=== PATIENT | female | born 1980 | race Caucasian/White ===

== ENCOUNTER 2020-11-03 10:04 | Emergency (ER) | payer OTHER ==
[~2020-11-03] VITALS: Ht 160 cm; Wt 97.5 kg
[2020-11-03] MEDS ORDERED: SPIRONOLACTONE25 MG PO (10:18)
[2020-11-03] MEDS ORDERED: LASIX 40 MG TAB40 MG PO (10:19)
[2020-11-03] MEDS ORDERED: PROTONIX40 M2 PO (10:19)
[2020-11-03] MEDS ORDERED: SUPER THERAVIT1 EACH PO (10:21)
[2020-11-03] MEDS ORDERED: FENOFIBRATE150 MG PO (10:21)
[2020-11-03] MEDS ORDERED: COZAAR 25 MG TA25 M2 PO (10:21)
[2020-11-03] MEDS ORDERED: VITAMIN B-121000 MC2 SUBLING (10:22)
[2020-11-03 10:57] LABS: ABSOLUTE BASOPHILS 0.1 thou/uL (0.0-0.2); ABSOLUTE EOSINOPHILS 0.2 thou/uL (0.0-0.7); ABSOLUTE LYMPHOCYTES 2.6 thou/uL (0.8-5.3); ABSOLUTE MONOCYTES 0.5 thou/uL (0.0-1.2); ABSOLUTE NEUTROPHILS 5.2 thou/uL (1.6-8.1); BASOPHILS 0.9 %; EOSINOPHILS 1.8 %; HEMATOCRIT 37.8 % (37.0-47.0); HEMOGLOBIN 13.4 gm/dL (12.0-15.0); LYMPHOCYTES 30.9 %; MCH 31.8 pg (26.0-34.0); MCHC 35.4 g/dL (28.0-37.0); MCV 89.9 fL (80.0-100.0); MPV 7.8 fl. (7.2-11.1); NUCLEATED RBCS 0 /100WBC; PLATELET COUNT* 281 thou/uL (150-400); POLYS 60.4 %; RBC 4.21 mil/uL (4.20-5.00); RDW-CV 12.7 % (10.5-14.5); WBC 8.5 thou/uL (4.0-11.0)
[2020-11-03 11:08] LABS: CALCIUM 8.8 mg/dL (8.5-10.1); CREATININE 0.9 mg/dL (0.6-1.3); POTASSIUM 3.2 mmol/L (3.5-5.1)
[2020-11-03 11:21] LABS: ALBUMIN 4.1 g/dL (3.4-5.0); MAGNESIUM 1.9 mg/dL (1.8-2.4); TOTAL BILIRUBIN 0.6 mg/dL (<0.1-1.0); TOTAL PROTEIN 7.4 g/dL (6.4-8.2)
[2020-11-03 11:55] VITALS: BP 113/63
--- NOTE | 2020-11-03 16:33 | EKG ---
[place] [address] ELECTROCARDIOGRAM REPORT Name: NORMA RAYMUNDO Room: [facility]#: [id number] Admission: 11/03/20 Attend Phys: Discharge: 11/03/20 Date of : 76 Date of Service: 11/03/20 1045 Report #: [id number] THIS REPORT FOR: //name// [facility] ED Test Date: 2020-11-03 Test Time: 10:45:40 Pat Name: NORMA RAYMUNDO Department: Room: Gender: [employer] Hel[employer]: : 1980 Requested By: Ethan Davis Order Number: [id number] MD: Jude Morales Measurements Intervals [place] Rate: 78 P: 43 KS: 159 QRS: 4 QRSD: 109 T: 28 QT: 398 QTc: 454 Interpretive Statements Sinus rhythm No previous ECG available for comparison Electronically Signed On 11-03-2020 16:33:33 CDT by Jude Morales [email or web address] <ELECTRONICALLY SIGNED> By: Jude Morales MD, [facility] 11/03/20 1633 1045 44 Jude Morales MD, FACC /EPI
== END 2020-11-03 11:55 | disposition home or self-care (01) ==
LOC: M.ERS 10:04
PROVIDERS: Emergency Medicine Emergency Medical Services
DX: R22.43 Localized swelling, mass and lump, lower limb, bilateral (principal); Z88.5 Allergy status to narcotic agent